=== PATIENT | male | born 1955 | race Caucasian/White ===

== ENCOUNTER 2016-11-02 13:42 | Emergency (ER) | payer OTHER ==
--- NOTE | 2016-11-02 14:16 | ED NURSING NOTES ---
Clinical Report - Nurses [facility] [address] [place] [address] 11/02/2016 13:45 [id number] TRI[facility] Triage time 14:00 Nov 02 2016. Acuity: LEVEL 3. Chief Complaint: SKIN LESION. Alert. ANJU COMA SCORE: [place] Coma Scale: 15- eyes open spontaneously (4); best verbal response- oriented x 4 (5); best motor response- obeys commands (6). --14:09 Victor Hugo Corley R.N. 14:02 11/02/16. BP: 144/78. HR: 89. RR: 16. O2 saturation: 98%. Temp: 97.8 F (oral). Pain level now: 12/31. --14:09 Victor Hugo Corley R.N. Weight: 72.5 kg stated. Height/Length: 66 inches Per Patient. BMI: 25.8. --14:05 Victor Hugo Corley R.N. Medications None. --14:06 Victor Hugo Corley R.N. Allergies No Known Drug Allergy. --14:06 Victor Hugo Corley R.N. Medication/allergy information source: the patient. --14:09 Victor Hugo Corley R.N. History Arrived by private vehicle. Historian: patient. Accompanied by friend. Primary physician (none). ( Abscess (L) Buttock). Reported as located on the left buttock. Onset. (about 3 weeks ago). It is described as burning and painful. Treatment QC LAB TECHNICIAN: None. SOCIAL HX: Heavy tobacco smoker (cigarette)- less than 1 pack per day. History of drug use: heroin, methamphetamines, marijuana. No infectious disease exposure. ABUSE ASSESSMENT: No report of abuse. FALL RISK ASSESSMENT: Fall risk assessment completed. No fall risk identified. NUTRITIONAL RISK ASSESSMENT: The nutritional risk assessment revealed no deficiencies. FUNCTIONAL ASSESSMENT: Functional assessment: no impairments noted. LEARNING NEEDS ASSESSMENT: The learning needs assessment revealed no barriers. SKIN INTEGRITY ASSESSMENT: Skin integrity risk assessment completed. No skin integrity risk identified. --14:09 Victor Hugo Corley R.N. PROBLEMS: Lower Extremity Pain. Tibia Fracture. Rotator Cuff Injury. Immunizations. Cervical Strain. Hypertension. --14: Victor Hugo Corley R.N. Rotator Cuff Injury [RuleOut]. --14: Victor Hugo Corley R.N. Substance Abuse. --14: Victor Hugo Corley R.N. ADDITIONAL SURGERIES: Hip Surgery. Inguinal Hernia Repair. Knee Surgery. Neck Surgery. Shoulder Surgery. --14: Victor Hugo Corley R.N. Interventions ID band on patient. To treatment room. --14: Victor Hugo Corley R.N. PHYSICAL ASSESSMENT Ambulatory to room. GENERAL / NEURO / PSYCH: Alert. Appears in pain. Oriented X 4. HEENT: Mucous membranes are pink. RESPIRATORY: Respirations not labored. CVS: Pulses within normal limits. GI / : Abdomen nontender. SKIN: Skin is warm and dry. Tenderness on the left buttock. Swelling on the left buttock. Erythema on the left buttock. --14:10 Victor Hugo Corley R.N. NURSING PROGRESS NOTES Patient gowned. Reassurance given to the patient. Patient identifiers checked. Call light placed in reach. Side rails up x 1. Bed placed in lowest position. Brakes of bed on. Patient ready for evaluation- chart flagged and ED physician notified. --14:10 Victor Hugo Corley R.N. 14:13 11/02/2016 TDAP IM 0.5 mL given. (Lot#: [id number], expiration date: 06/27/2018, Hosted Services Analyst: sanofi pasteur). Given in the left deltoid. Allergies verified and confirmed 5 rights. Vaccine information statement provided to the patient. --14:30 Ghada Gonzalez R.N. 14:20 11/02/2016 Bactrim DS (Sulfamethoxazole-TMP DS) PO 1 tab given. Allergies verified and confirmed 5 rights. --14:30 Ghada Gonzalez R.N. DISPOSITION / DISCHARGE 14:25. Condition at departure: improved. No learning barriers present. Discharge instructions provided and reviewed with the patient. Reviewed medication(s) side effects, precautions, dosing and course information. Prescription(s) given to the patient. Patient verbalized understanding. Written instructions provided in Arabic. The patient was discharged home. He left the Emergency Department ambulatory and via bus. Medication list reviewed and validated. --14:33 Ghada Gonzalez R.N. 14:02 11/02/16. BP: 144/78. HR: 89. RR: 16. O2 saturation: 98%. Temp: 97.8 F (oral). Pain level now: 12/31. --14:33 Ghada Gonzalez R.N. Locked/Released at 11/02/2016 14:33 by Ghada Gonzalez R.N.
--- NOTE | 2016-11-02 14:16 | ED ORDER SUMMARY ---
..... Patient: MIKE LEE OrderSheet [facility] VisitID: [id number] [address] [place] [address] 61y, M Registration Date/Time: 11/02/2016 ORDER SHEET Weight: 72.5 kg (stated) Allergies: No Known Drug Allergy GENERAL ORDERS: Culture, Wound Deep (Buttock) (Left side, from I/D) Urgent (14:14 11/02/2016 EKoroleva P.A.-C) (Ack 14:20 LTapper) (14:28 SRoberts R.N.) MEDICATION ORDERS: Tdap IM 0.5 mL (NOW, per protocol) (14:14 11/02/2016 EKbunnyleva P.A.-C) (14:30 SRoberts R.N.) Bactrim DS PO (Tablet 800-160 mg) 1 tab (NOW) (14:14 11/02/2016 EKoroleva P.A.-C) (14:30 SRoberts R.N.) IV FLUIDS: ORDER SHEET NOTES: [Electronically signed by Magaly Diana P.A.-C (14:24 11/02/2016)] [Electronically signed by Ghada Gonzalez R.N. (14:33 11/02/2016)] [Electronically locked/signed by Ghada Gonzalez R.N. (14:33 11/02/2016)]
--- NOTE | 2016-11-02 14:16 | ED CLINICAL REPORT ---
Clinical Report - Physicians/Mid Levels Merged With [facility] [address] [place] [address] 11/02/2016 13:45 Patient: MIKE LEE Time Seen: 14:14 Nov 02 2016. Arrived- By private vehicle. Historian- patient. HISTORY OF PRESENT ILLNESS Chief Complaint: SKIN RASH. This started just prior to arrival and is still present. It is described as painful. It has been located on the left back. A possible cause has been identified. (swelling and pain for 3 weeks, no drainage, has been doing warm packs.). REVIEW OF SYSTEMS No fever, difficulty breathing, lump in throat, headache or eye irritation. No nausea or diarrhea. He has had joint pain. All systems otherwise negative, except as recorded above. PAST HISTORY Last tetanus immunization was more than 5 years ago. SOCIAL HISTORY History of IV drug use: marijuana. ADDITIONAL NOTES The nursing notes have been reviewed. PHYSICAL EXAM Vital Signs: 11/02/2016 14:02 BP: 144/78. HR: 89. RR: 16. O2 saturation: 98%. Temp: 97.8 F. Pain level now: 4/10. Appearance: Alert. ENT: Nose normal. CVS: Normal heart rate and rhythm. Heart sounds normal. Respiratory: No respiratory distress. Breath sounds normal. Skin: Skin warm. Skin not cool on palpation. Erythema. Tender indurated area. Cellulitis. Abscess. Rash present on the left buttocks. There is warmth, tenderness and swelling. PROGRESS AND PROCEDURES Incision & Drainage of Abscess: Time: 14:14 Nov 02 2016. Time-out completed immediately before the procedure. The abscess is located in the right buttock. The risks of the procedure, benefits and alternatives were explained. Consent was obtained. Anesthesia provided using 1% lidocaine with epi. Ultrasound utilized to determine location of abscess. The abscess was incised with a #11 surgical blade. A moderate amount of pus was drained. Cavity was packed with gauze. Sample obtained for cultures. Course of Care: patient here in the ER is afebrile, no distress. Patient with history of similar, unsure if he has had previous MRSA, however likely suspect such. Tetanus immunization about 8 years previously, the such as updated in the ER. 11/02/2016 14:02 BP: 144/78. HR: 89. RR: 16. O2 saturation: 98%. Temp: 97.8 F. Pain level now: 10. Patient is stable. Physical exam findings are improved. Symptoms better. Patient/family counseled. Differential Diagnosis: I considered dermatitis, bacterial infection, folliculitis, necrotizing subcutaneous infection, fungal infection and viral etiology as a possible cause of rash in this patient. This is a partial list of diagnoses considered. Disposition: Discharged. CLINICAL IMPRESSION Single abscess with incision and drainage (Left Gluteus). INSTRUCTIONS (in er/ chc if no improvement in 48 hours or remove packing at home in shower if improvement). Warnings: TETANUS: You were given a tetanus shot during your visit. Make a note for future reference. Prescription Medications: Bactrim DS 800 mg / 160 mg: take 1 tablet orally every 12 hours for 10 days. No refill. Substitution is permissible. Follow-up: Follow up with your doctor in three days. (Electronically signed by Magaly Diana P.A.-C 11/02/2016 14:24)
--- NOTE | 2016-11-02 14:16 | ED NURSING NOTES ---
Clinical Report - Nurses [facility] [address] [place] [address] 11/02/2016 13:45 [id number] TRI[facility] Triage time 14:00 Nov 02 2016. Acuity: LEVEL 3. Chief Complaint: SKIN LESION. Alert. ANJU COMA SCORE: [place] Coma Scale: 15- eyes open spontaneously (4); best verbal response- oriented x 4 (5); best motor response- obeys commands (6). --14:09 Victor Hugo Corley R.N. 14:02 11/02/16. BP: 144/78. HR: 89. RR: 16. O2 saturation: 98%. Temp: 97.8 F (oral). Pain level now: 12/31. --14:09 Victor Hugo Corley R.N. Weight: 72.5 kg stated. Height/Length: 66 inches Per Patient. BMI: 25.8. --14:05 Victor Hugo Corley R.N. Medications None. --14:06 Victor Hugo Corley R.N. Allergies No Known Drug Allergy. --14:06 Victor Hugo Corley R.N. Medication/allergy information source: the patient. --14:09 Victor Hugo Corley R.N. History Arrived by private vehicle. Historian: patient. Accompanied by friend. Primary physician (none). ( Abscess (L) Buttock). Reported as located on the left buttock. Onset. (about 3 weeks ago). It is described as burning and painful. 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 SOCIAL HX: Heavy tobacco smoker (cigarette)- less than 1 pack per day. History of drug use: heroin, methamphetamines, marijuana. No infectious disease exposure. ABUSE ASSESSMENT: No report of abuse. FALL RISK ASSESSMENT: Fall risk assessment completed. No fall risk identified. NUTRITIONAL RISK ASSESSMENT: The nutritional risk assessment revealed no deficiencies. FUNCTIONAL ASSESSMENT: Functional assessment: no impairments noted. LEARNING NEEDS ASSESSMENT: The learning needs assessment revealed no barriers. SKIN INTEGRITY ASSESSMENT: Skin integrity risk assessment completed. No skin integrity risk identified. --14:09 Victor Hugo Corley R.N. PROBLEMS: Lower Extremity Pain. Tibia Fracture. Rotator Cuff Injury. Immunizations. Cervical Strain. Hypertension. --14: Victor Hugo Corley R.N. Rotator Cuff Injury [RuleOut]. --14: Victor Hugo Corley R.N. Substance Abuse. --14: Victor Hugo Corley R.N. ADDITIONAL SURGERIES: Hip Surgery. Inguinal Hernia Repair. Knee Surgery. Neck Surgery. Shoulder Surgery. --14: Victor Hugo Corley R.N. Interventions ID band on patient. To treatment room. --14: Victor Hugo Corley R.N. PHYSICAL ASSESSMENT Ambulatory to room. GENERAL / NEURO / PSYCH: Alert. Appears in pain. Oriented X 4. HEENT: Mucous membranes are pink. RESPIRATORY: Respirations not labored. CVS: Pulses within normal limits. GI / : Abdomen nontender. SKIN: Skin is warm and dry. Tenderness on the left buttock. Swelling on the left buttock. Erythema on the left buttock. --14:10 Victor Hugo Corley R.N. NURSING PROGRESS NOTES Patient gowned. Reassurance given to the patient. Patient identifiers checked. Call light placed in reach. Side rails up x 1. Bed placed in lowest position. Brakes of bed on. Patient ready for evaluation- chart flagged and ED physician notified. --14:10 Victor Hugo Corley R.N. 14:13 11/02/2016 TDAP IM 0.5 mL given. (Lot#: [id number], expiration date: 06/27/2018, Tree Inspector: sanofi pasteur). Given in the left deltoid. Allergies verified and confirmed 5 rights. Vaccine information statement provided to the patient. --14:30 Ghada Gonzalez R.N. 14:20 11/02/2016 Bactrim DS (Sulfamethoxazole-TMP DS) PO 1 tab given. Allergies verified and confirmed 5 rights. --14:30 Ghada Gonzalez R.N. DISPOSITION / DISCHARGE 14:25. Condition at departure: improved. No learning barriers present. Discharge instructions provided and reviewed with the patient. Reviewed medication(s) side effects, precautions, dosing and course information. Prescription(s) given to the patient. Patient verbalized understanding. Written instructions provided in Divehi. The patient was discharged home. He left the Emergency Department ambulatory and via bus. Medication list reviewed and validated. --14:33 Ghada Gonzalez R.N. 14:02 11/02/16. BP: 144/78. HR: 89. RR: 16. O2 saturation: 98%. Temp: 97.8 F (oral). Pain level now: 12/31. --14:33 Ghada Gonzalez R.N. Locked/Released at 11/02/2016 14:33 by Ghada Gonzalez R.N.
--- NOTE | 2016-11-02 14:16 | ED ORDER SUMMARY ---
..... Patient: MIKE LEE OrderSheet [facility] VisitID: [id number] [address] [place] [address] 61y, M Registration Date/Time: 11/02/2016 ORDER SHEET Weight: 72.5 kg (stated) Allergies: No Known Drug Allergy GENERAL ORDERS: Culture, Wound Deep (Buttock) (Left side, from I/D) Urgent (14:14 11/02/2016 EKoroleva P.A.-C) (Ack 14:20 LTapper) (14:28 SRoberts R.N.) MEDICATION ORDERS: Tdap IM 0.5 mL (NOW, per protocol) (14:14 11/02/2016 EKbunnyleva P.A.-C) (14:30 SRoberts R.N.) Bactrim DS PO (Tablet 800-160 mg) 1 tab (NOW) (14:14 11/02/2016 EKoroleva P.A.-C) (14:30 SRoberts R.N.) IV FLUIDS: ORDER SHEET NOTES: [Electronically signed by Magaly Diana P.A.-C (14:24 11/02/2016)] [Electronically signed by Ghada Gonzalez R.N. (14:33 11/02/2016)] [Electronically locked/signed by Ghada Gonzalez R.N. (14:33 11/02/2016)]
--- NOTE | 2016-11-02 14:33 | ED MAR SUMMARY ---
..... Medication Administration Record [facility] [address] [place] [address] Patient: MIKE LEE Visit ID: [id number] 61y, M Weight: 72.5 kg Height/Length: 66 in BMI: 25.8 ALLERGIES: No Known Drug Allergy Given 14:13 11/02/2016 Ghada Gonzalez R.N. Medication Administered: TDAP [IM], Dose: 0.5 mL IM. Medication Ordered: Tdap IM 0.5 mL (NOW, per protocol). Given 14:20 11/02/2016 Ghada Gonzalez R.N. Medication Administered: BACTRIM DS [PO] (SULFAMETHOXAZOLE-TMP DS), Dose: 1 tab PO. Medication Ordered: Bactrim DS PO (Tablet 800-160 mg) 1 tab (NOW).
--- NOTE | 2016-11-02 14:33 | ED DISCHARGE INSTRUCTIONS ---
Patient: MIKE LEE General Instructions [facility] VisitID: [id number] [place] [address] 61y, M Registration Date/Time: 11/02/2016 Single abscess with incision and drainage (Left Gluteus). INSTRUCTIONS (in er/ chc if no improvement in 48 hours or remove packing at home in shower if improvement). Warnings: TETANUS: You were given a tetanus shot during your visit. Make a note for future reference. Prescription Medications: Bactrim DS 800 mg / 160 mg: take 1 tablet orally every 12 hours for 10 days. No refill. Substitution is permissible. Follow-up: Follow up with your doctor in three days. ADDITIONAL INFORMATION Abscess [Incision & Drainage] An abscess (sometimes called a boil) occurs when bacteria get trapped under the skin and begin to grow. Pus forms inside the abscess as the body responds to the bacteria. An abscess can occur with an insect bite, ingrown hair, blocked oil gland, pimple, cyst, or puncture wound. Treatment of your abscess has required an incision to drain the pus. If the abscess pocket was large, a gauze packing may have been inserted. This will need to be removed and possibly replaced on your next visit. Antibiotics are not required in the treatment of a simple abscess, unless the infection is spreading into the skin around the wound (known as cellulitis). Healing of the wound will take about one to two weeks depending on the size of the abscess. Healthy tissue will grow from the bottom and sides of the opening until it seals over. Home Care: The wound may drain for the first two days. Cover the wound with a clean dry dressing. If the dressing becomes soaked with blood or pus, change it. If a gauze packing was placed inside the abscess cavity, you may be advised to remove it yourself. You may do this in the shower. Once the packing is removed, you should wash the area in the shower or bath 3 to 4 times a day, until the skin opening has closed. If you were prescribed antibiotics, take them as directed until they are all gone. You may use acetaminophen (Tylenol) or ibuprofen (Motrin, Advil) to control pain, unless another pain medicine was prescribed. [ NOTE: If you have liver disease or ever had a stomach ulcer, talk with your doctor before using these medicines.] Follow Up with your doctor as advised by our staff. If a gauze packing was inserted in your wound, it should be removed in 1-2 days. Check your wound every day for the signs of worsening infection listed below. Get Prompt Medical Attention if any of the following occur: Increasing redness or swelling Red streaks in the skin leading away from the wound Increasing local pain or swelling Continued pus draining from the wound two days after treatment Fever of 100.4F (38C) or higher, or as directed by your healthcare provider Diphtheria Toxoid Adsorbed, Tetanus Toxoid, Adsorbed Suspension for injection What is this medicine? DIPHTHERIA AND TETANUS TOXOIDS ADSORBED (dif THEER ee uh and TET n us TOK soids ad SAWRB) is a vaccine. It is used to prevent infections of diphtheria and tetanus (mansoor). How should I use this medicine? This vaccine is for injection into a muscle. It is given by a health day care assistant. A copy of Vaccine Information Statements will be given before each vaccination. Read this sheet carefully each time. The sheet may change frequently. Talk to your barrel header regarding the use of this medicine in children. While this drug may be prescribed for selected conditions, precautions do apply. What side effects may I notice from receiving this medicine? Side effects that you should report to your doctor or health day care assistant as soon as possible: allergic reactions like skin rash, itching or hives, swelling of the face, lips, or tongue arthritis pain breathing problems changes in hearing extreme changes in behavior fast, irregular heartbeat fever over 100 degrees F pain, tingling, numbness in the hands or feet seizures unusually weak or tired Side effects that usually do not require medical attention (report to your doctor or health day care assistant if they continue or are bothersome): aches or pains bruising, pain, swelling at site where injected headache loss of appetite low-grade fever of 100 degrees F or less nausea, vomiting sleepy swollen glands What may interact with this medicine? adalimumab anakinra infliximab live vaccines medicines that suppress your immune system medicines to treat cancer medicines that treat or prevent blood clots like daily aspirin, enoxaparin, heparin, ticlopidine, warfarin radiopharmaceuticals like iodine I-125 or I-131 What if I miss a dose? Keep appointments for follow-up (booster) doses as directed. It is important not to miss your dose. Call your doctor or health day care assistant if you are unable to keep an appointment. Where should I keep my medicine? This drug is given in a hospital or clinic and will not be stored at home. What should I tell my health care provider before I take this medicine? They need to know if you have any of these conditions: bleeding disorder immune system problems infection with fever low levels of platelets in the blood an unusual or allergic reaction to diphtheria or tetanus toxoid, latex, thimerosal, other medicines, foods, dyes, or preservatives or trying to get breast-feeding What should I watch for while using this medicine? Contact your doctor or health day care assistant and seek emergency medical care if any serious side effects occur. This vaccine, like all vaccines, may not fully protect everyone. Sulfamethoxazole, Trimethoprim Oral tablet What is this medicine? SULFAMETHOXAZOLE; TRIMETHOPRIM or SMX-TMP (suhl fuh meth OK graeme zohl; trye METH oh prim) is a combination of a sulfonamide antibiotic and a second antibiotic, trimethoprim. It is used to treat or prevent certain kinds of bacterial infections. It will not work for colds, flu, or other viral infections. How should I use this medicine? Take this medicine by mouth with a full glass of water. Follow the directions on the prescription label. Take your medicine at regular intervals. Do not take it more often than directed. Do not skip doses or stop your medicine early. Talk to your barrel header regarding the use of this medicine in children. Special care may be needed. This medicine has been used in children as young as 2 months of age. What side effects may I notice from receiving this medicine? Side effects that you should report to your doctor or health day care assistant as soon as possible: allergic reactions like skin rash or hives, swelling of the face, lips, or tongue breathing problems fever or chills, sore throat irregular heartbeat, chest pain joint or muscle pain pain or difficulty passing urine red pinpoint spots on skin redness, blistering, peeling or loosening of the skin, including inside the mouth unusual bleeding or bruising unusually weak or tired yellowing of the eyes or skin Side effects that usually do not require medical attention (report to your doctor or health day care assistant if they continue or are bothersome): diarrhea dizziness headache loss of appetite nausea, vomiting nervousness What may interact with this medicine? Do not take this medicine with any of the following medications: aminobenzoate potassium dofetilide metronidazole This medicine may also interact with the following medications: RADHA inhibitors like benazepril, enalapril, lisinopril, and ramipril cyclosporine digoxin diuretics indomethacin medicines for diabetes methenamine methotrexate phenytoin potassium supplements pyrimethamine sulfinpyrazone tricyclic antidepressants warfarin What if I miss a dose? If you miss a dose, take it as soon as you can. If it is almost time for your next dose, take only that dose. Do not take double or extra doses. Where should I keep my medicine? Keep out of the reach of children. Store at room temperature between 20 to 25 degrees C (68 to 77 degrees F). Protect from light. Throw away any unused medicine after the expiration date. What should I tell my health care provider before I take this medicine? They need to know if you have any of these conditions: anemia asthma being treated with anticonvulsants if you frequently drink alcohol containing drinks kidney disease liver disease low level of folic acid or [id number] dehydrogenase poor nutrition or malabsorption porphyria severe allergies thyroid disorder an unusual or allergic reaction to sulfamethoxazole, trimethoprim, sulfa drugs, other medicines, foods, dyes, or preservatives or trying to get breast-feeding What should I watch for while using this medicine? Tell your doctor or health day care assistant if your symptoms do not improve. Drink several glasses of water a day to reduce the risk of kidney problems. Do not treat diarrhea with over the counter products. Contact your doctor if you have diarrhea that lasts more than 2 days or if it is severe and watery. This medicine can make you more sensitive to the sun. Keep out of the sun. If you cannot avoid being in the sun, wear protective clothing and use a sunscreen. Do not use sun lamps or tanning beds/booths. You have been given the following additional information: Abscess, Incision And Drainage Diphtheria Toxoid Adsorbed, Tetanus Toxoid, Adsorbed Suspension for injection Sulfamethoxazole, Trimethoprim Oral tablet (Electronically signed by Magaly Diana P.A.-C 11/02/2016 14:24)
--- NOTE | 2016-11-02 14:33 | ED MAR SUMMARY ---
..... Medication Administration Record [facility] [address] [place] [address] Patient: MIKE LEE Visit ID: [id number] 61y, M Weight: 72.5 kg Height/Length: 66 in BMI: 25.8 ALLERGIES: No Known Drug Allergy Given 14:13 11/02/2016 Ghada Gonzalez R.N. Medication Administered: TDAP [IM], Dose: 0.5 mL IM. Medication Ordered: Tdap IM 0.5 mL (NOW, per protocol). Given 14:20 11/02/2016 Ghada Gonzalez R.N. Medication Administered: BACTRIM DS [PO] (SULFAMETHOXAZOLE-TMP DS), Dose: 1 tab PO. Medication Ordered: Bactrim DS PO (Tablet 800-160 mg) 1 tab (NOW).
--- NOTE | 2016-11-02 14:33 | ED DISCHARGE INSTRUCTIONS ---
Patient: MIKE LEE General Instructions [facility] VisitID: [id number] [place] [address] 61y, M Registration Date/Time: 11/02/2016 Single abscess with incision and drainage (Left Gluteus). INSTRUCTIONS (in er/ chc if no improvement in 48 hours or remove packing at home in shower if improvement). Warnings: TETANUS: You were given a tetanus shot during your visit. Make a note for future reference. Prescription Medications: Bactrim DS 800 mg / 160 mg: take 1 tablet orally every 12 hours for 10 days. No refill. Substitution is permissible. Follow-up: Follow up with your doctor in three days. ADDITIONAL INFORMATION Abscess [Incision & Drainage] An abscess (sometimes called a boil) occurs when bacteria get trapped under the skin and begin to grow. Pus forms inside the abscess as the body responds to the bacteria. An abscess can occur with an insect bite, ingrown hair, blocked oil gland, pimple, cyst, or puncture wound. Treatment of your abscess has required an incision to drain the pus. If the abscess pocket was large, a gauze packing may have been inserted. This will need to be removed and possibly replaced on your next visit. Antibiotics are not required in the treatment of a simple abscess, unless the infection is spreading into the skin around the wound (known as cellulitis). Healing of the wound will take about one to two weeks depending on the size of the abscess. Healthy tissue will grow from the bottom and sides of the opening until it seals over. Home Care: The wound may drain for the first two days. Cover the wound with a clean dry dressing. If the dressing becomes soaked with blood or pus, change it. If a gauze packing was placed inside the abscess cavity, you may be advised to remove it yourself. You may do this in the shower. Once the packing is removed, you should wash the area in the shower or bath 3 to 4 times a day, until the skin opening has closed. If you were prescribed antibiotics, take them as directed until they are all gone. You may use acetaminophen (Tylenol) or ibuprofen (Motrin, Advil) to control pain, unless another pain medicine was prescribed. [ NOTE: If you have liver disease or ever had a stomach ulcer, talk with your doctor before using these medicines.] Follow Up with your doctor as advised by our staff. If a gauze packing was inserted in your wound, it should be removed in 1-2 days. Check your wound every day for the signs of worsening infection listed below. Get Prompt Medical Attention if any of the following occur: Increasing redness or swelling Red streaks in the skin leading away from the wound Increasing local pain or swelling Continued pus draining from the wound two days after treatment Fever of 100.4F (38C) or higher, or as directed by your healthcare provider Diphtheria Toxoid Adsorbed, Tetanus Toxoid, Adsorbed Suspension for injection What is this medicine? DIPHTHERIA AND TETANUS TOXOIDS ADSORBED (dif THEER ee uh and TET n us TOK soids ad SAWRB) is a vaccine. It is used to prevent infections of diphtheria and tetanus (mansoor). How should I use this medicine? This vaccine is for injection into a muscle. It is given by a health care navigator. A copy of Vaccine Information Statements will be given before each vaccination. Read this sheet carefully each time. The sheet may change frequently. Talk to your mechanical manufacturing technician regarding the use of this medicine in children. While this drug may be prescribed for selected conditions, precautions do apply. What side effects may I notice from receiving this medicine? Side effects that you should report to your doctor or health care navigator as soon as possible: allergic reactions like skin rash, itching or hives, swelling of the face, lips, or tongue arthritis pain breathing problems changes in hearing extreme changes in behavior fast, irregular heartbeat fever over 100 degrees F pain, tingling, numbness in the hands or feet seizures unusually weak or tired Side effects that usually do not require medical attention (report to your doctor or health care navigator if they continue or are bothersome): aches or pains bruising, pain, swelling at site where injected headache loss of appetite low-grade fever of 100 degrees F or less nausea, vomiting sleepy swollen glands What may interact with this medicine? adalimumab anakinra infliximab live vaccines medicines that suppress your immune system medicines to treat cancer medicines that treat or prevent blood clots like daily aspirin, enoxaparin, heparin, ticlopidine, warfarin radiopharmaceuticals like iodine I-125 or I-131 What if I miss a dose? Keep appointments for follow-up (booster) doses as directed. It is important not to miss your dose. Call your doctor or health care navigator if you are unable to keep an appointment. Where should I keep my medicine? This drug is given in a hospital or clinic and will not be stored at home. What should I tell my health care provider before I take this medicine? They need to know if you have any of these conditions: bleeding disorder immune system problems infection with fever low levels of platelets in the blood an unusual or allergic reaction to diphtheria or tetanus toxoid, latex, thimerosal, other medicines, foods, dyes, or preservatives or trying to get breast-feeding What should I watch for while using this medicine? Contact your doctor or health care navigator and seek emergency medical care if any serious side effects occur. This vaccine, like all vaccines, may not fully protect everyone. Sulfamethoxazole, Trimethoprim Oral tablet What is this medicine? SULFAMETHOXAZOLE; TRIMETHOPRIM or SMX-TMP (suhl fuh meth OK greame zohl; trye METH oh prim) is a combination of a sulfonamide antibiotic and a second antibiotic, trimethoprim. It is used to treat or prevent certain kinds of bacterial infections. It will not work for colds, flu, or other viral infections. How should I use this medicine? Take this medicine by mouth with a full glass of water. Follow the directions on the prescription label. Take your medicine at regular intervals. Do not take it more often than directed. Do not skip doses or stop your medicine early. Talk to your mechanical manufacturing technician regarding the use of this medicine in children. Special care may be needed. This medicine has been used in children as young as 2 months of age. What side effects may I notice from receiving this medicine? Side effects that you should report to your doctor or health care navigator as soon as possible: allergic reactions like skin rash or hives, swelling of the face, lips, or tongue breathing problems fever or chills, sore throat irregular heartbeat, chest pain joint or muscle pain pain or difficulty passing urine red pinpoint spots on skin redness, blistering, peeling or loosening of the skin, including inside the mouth unusual bleeding or bruising unusually weak or tired yellowing of the eyes or skin Side effects that usually do not require medical attention (report to your doctor or health care navigator if they continue or are bothersome): diarrhea dizziness headache loss of appetite nausea, vomiting nervousness What may interact with this medicine? Do not take this medicine with any of the following medications: aminobenzoate potassium dofetilide metronidazole This medicine may also interact with the following medications: RADHA inhibitors like benazepril, enalapril, lisinopril, and ramipril cyclosporine digoxin diuretics indomethacin medicines for diabetes methenamine methotrexate phenytoin potassium supplements pyrimethamine sulfinpyrazone tricyclic antidepressants warfarin What if I miss a dose? If you miss a dose, take it as soon as you can. If it is almost time for your next dose, take only that dose. Do not take double or extra doses. Where should I keep my medicine? Keep out of the reach of children. Store at room temperature between 20 to 25 degrees C (68 to 77 degrees F). Protect from light. Throw away any unused medicine after the expiration date. What should I tell my health care provider before I take this medicine? They need to know if you have any of these conditions: anemia asthma being treated with anticonvulsants if you frequently drink alcohol containing drinks kidney disease liver disease low level of folic acid or dnmurio-4-eaydgfzor dehydrogenase poor nutrition or malabsorption porphyria severe allergies thyroid disorder an unusual or allergic reaction to sulfamethoxazole, trimethoprim, sulfa drugs, other medicines, foods, dyes, or preservatives or trying to get breast-feeding What should I watch for while using this medicine? Tell your doctor or health care navigator if your symptoms do not improve. Drink several glasses of water a day to reduce the risk of kidney problems. Do not treat diarrhea with over the counter products. Contact your doctor if you have diarrhea that lasts more than 2 days or if it is severe and watery. This medicine can make you more sensitive to the sun. Keep out of the sun. If you cannot avoid being in the sun, wear protective clothing and use a sunscreen. Do not use sun lamps or tanning beds/booths. You have been given the following additional information: Abscess, Incision And Drainage Diphtheria Toxoid Adsorbed, Tetanus Toxoid, Adsorbed Suspension for injection Sulfamethoxazole, Trimethoprim Oral tablet (Electronically signed by Magaly Diana P.A.-C 11/02/2016 14:24)
--- NOTE | 2016-11-02 14:34 | ED MED RECONCILIATION SUMMARY ---
Patient: MIKE LEE Medication Reconciliation Report [facility] VisitID: [id number] [address] [place] [address] 61y, M Registration Date/Time: 11/02/2016 Weight: 72.5 kg Height/Length: 66 in. BMI: 25.8 ALLERGIES: No Known Drug Allergy The patient's Home Medications are listed below: NONE. The source(s) of the original Home Medication information: patient The following Medications were given to the patient in the Emergency Department: TDAP [IM] IM 0.5 mL, administered: 11/02/2016 2:13:00 PM Bactrim DS [PO] PO 1 tab, administered: 11/02/2016 2:20:00 PM The following Medications were prescribed to the patient: Bactrim DS 800 mg / 160 mg: take 1 tablet orally every 12 hours for 10 days. No refill. Substitution is permissible. -- Magaly Diana, PAbiA.-C
--- NOTE | 2016-11-02 14:34 | ED MED RECONCILIATION SUMMARY ---
Patient: MIKE LEE Medication Reconciliation Report [facility] VisitID: [id number] [address] [place] [address] 61y, M Registration Date/Time: 11/02/2016 Weight: 72.5 kg Height/Length: 66 in. BMI: 25.8 ALLERGIES: No Known Drug Allergy The patient's Home Medications are listed below: NONE. The source(s) of the original Home Medication information: patient The following Medications were given to the patient in the Emergency Department: TDAP [IM] IM 0.5 mL, administered: 11/02/2016 2:13:00 PM Bactrim DS [PO] PO 1 tab, administered: 11/02/2016 2:20:00 PM The following Medications were prescribed to the patient: Bactrim DS 800 mg / 160 mg: take 1 tablet orally every 12 hours for 10 days. No refill. Substitution is permissible. -- Magaly Diana, PAbiA.-C
== END 2016-11-02 14:25 | disposition home or self-care (01) ==
LOC: ED SRH 13:42
DX: L02.31 Cutaneous abscess of buttock (principal); I10 Essential (primary) hypertension; F17.210 Nicotine dependence, cigarettes, uncomplicated
CPT/HCPCS: 90070; 90131; 90309; 90470; 91672